=== PATIENT | male | born 2000 | race Caucasian/White ===

== ENCOUNTER 2023-06-20 07:16 | Observation (INO) | payer BC ==
--- NOTE | 2023-06-20 07:37 | ED ---
Back Pain HPI - General Chief Complaint: Back Pain/Injury Stated Complaint: back pain Time Seen by Provider: 06/20/23 07:23 Source: patient, RN notes reviewed Mode of arrival: ambulatory Limitations: no limitations - History of Present Illness Initial Comments: This is a 22-year-old male who presents to the emergency department for left flank pain. Patient states that it started 1 to 2 days ago. Pain is starting to wrap around to the abdomen to some extent. Reports a history of multiple kidney stones, most recently about a year ago. He has passed some on his own, and has also required surgery for some of them. He has noticed that his urine appears darker and he is having some burning with urination. MD Complaint: back pain - Related Data Home Medications Medication Instructions Recorded Confirmed No Known Home Medications 06/20/23 06/20/23 Allergies Allergy/AdvReac Type Severity Reaction Status Date / Time Penicillins Allergy Unknown Verified 06/20/23 13:32 Childhood, hives Review of Systems ROS Statement: Those systems with pertinent positive or pertinent negative responses have been documented in the HPI. ROS Other: All systems not noted in ROS Statement are negative. Past Medical History Additional Past Medical History / Comment(s): kidney stones Additional Past Surgical History / Comment(s): renal stents for kidney stones Past Psychological History: No Psychological Hx Reported Smoking Status: Vaper Past Alcohol Use History: Occasional General Exam Limitations: no limitations General appearance: alert, in no apparent distress Head exam: Present: atraumatic, normocephalic, normal inspection Respiratory exam: Present: normal lung sounds bilaterally. Absent: respiratory distress, wheezes, rales, rhonchi, stridor Cardiovascular Exam: Present: regular rate, normal rhythm, normal heart sounds. Absent: systolic murmur, diastolic murmur, rubs, gallop, clicks GI/Abdominal exam: Present: soft, tenderness (Left lower quadrant), normal bowel sounds. Absent: distended, guarding, rebound, rigid Back exam: Present: CVA tenderness (L). Absent: CVA tenderness (R) Neurological exam: Present: alert, oriented X3, CN II-XII intact Psychiatric exam: Present: normal affect, normal mood Skin exam: Present: warm, dry, intact, normal color. Absent: rash Course Vital Signs 06/20/23 06/20/23 06/20/23 07:16 07:48 13:10 Temperature 97.7 F Pulse Rate 72 68 64 Pulse Rate [ Pulse Oximetery ] Respiratory 18 16 18 Rate Blood Pressure 142/87 138/60 139/78 Blood Pressure [Right Arm] O2 Sat by Pulse 98 98 96 Oximetry 06/20/23 13:26 Temperature 98 F Pulse Rate Pulse Rate [ 65 Pulse Oximetery ] Respiratory 16 Rate Blood Pressure Blood Pressure 144/75 [Right Arm] O2 Sat by Pulse 99 Oximetry Medical Decision Making - Medical Decision Making This is a 22 year old male who presents to the emergency department for left flank pain. Was pt. sent in by a medical professional or institution? @ -No Did you speak to anyone other than the patient for history? @ -No Did you review nursing and triage notes? @ -Yes, and I agree, it is accurate with regards to the patient's symptoms. Were old charts reviewed? @ -No Differential Diagnosis? @ -Differential Flank Pain: UTI, pyelonephritis, kidney stone, musculoskeletal, pancreatitis, cholecystitis, this is not meant to be an all-inclusive list. EKG interpreted by me (3pts min.)? @ -Not obtained X-rays interpreted by me (1pt min.)? @ -Not obtained CT interpreted by me (1pt min.)? @ -CT scan of the abdomen and pelvis obtained. My interpretation identifies a left renal calculus. U/S interpreted by me (1pt. min.)? @ -Not obtained What testing was considered but not performed? (CT, X-rays, U/S, labs)? Why? @ -None What meds were considered but not given? Why? @ -None Did you discuss the management of the patient with other professionals? @ -Yes, Dr. Rowe, who accepts the patient for admission. Did you reconcile home meds? @ -Yes Was smoking cessation discussed for >3mins.? @ -No Was critical care preformed (if so, how long)? @ -No Were there social determinants of health that impacted care today? How? (Homelessness, low income, unemployed, alcoholism, drug addiction, transportation, low edu. Level, literacy, decrease access to med. care, fci, rehab)? @ -No Was there de-escalation of care discussed even if they declined? (Discuss DNR or withdrawal of care, Hospice)? @ -No What co-morbidities impacted this encounter? (DM, HTN, Smoking, COPD, CAD, Cancer, CVA, Hep., AIDS, mental health diagnosis, sleep apnea, morbid obesity)? @ -Kidney stones Was patient admitted / discharged? @ -Admitted. Lab work unremarkable. Urinalysis demonstrates blood without signs of infection. CT scan of the abdomen and pelvis obtained demonstrating a calculus at the left upper pole collecting system just proximal to the renal pelvis with upstream dilation. Patient initially treated with IV fluids, Toradol, and morphine. He had no improvement in symptoms and was then given Dilaudid. This offered only mild and temporary relief. Given the size and location of the stone, he will very likely need intervention to have it removed. Given that we are unable to control his pain in the emergency department, case was discussed with Dr. Rowe, urology. He accepted the patient for admission. Patient kept NPO in the event of any possible intervention. Undiagnosed new problem with uncertain prognosis? @ -None Drug Therapy requiring intensive monitoring for toxicity (Heparin, Nitro, Insulin, Cardizem)? @ -None Were any procedures done? @ -None Diagnosis/symptom? @ -Left renal pelvis stone, intractable pain Acute, or Chronic, or Acute on Chronic? @ -Acute Uncomplicated (without systemic symptoms) or Complicated (systemic symptoms)? @ -Complicated Side effects of treatment? @ -None Exacerbation, Progression, or Severe Exacerbation] @ -Not applicable Poses a threat to life or bodily function? @ -Yes This case was discussed in detail with the attending ED physician, Dr. Goins. Presentation, findings, and treatment plan discussed in detail as well. - Lab Data Result diagrams: 06/20/23 07:28 06/20/23 07:28 Lab Results 06/20/23 06/20/23 06/20/23 Range/Units 07:28 07:28 07:28 WBC 6.9 (3.8-10.6) k/uL RBC 5.47 (4.30-5.90) m/uL Hgb 17.2 (13.0-17.5) gm/dL Hct 50.2 (39.0-53.0) % MCV 91.9 (80.0-100.0) fL MCH 31.4 (25.0-35.0) pg MCHC 34.2 (31.0-37.0) g/dL RDW 12.3 (11.5-15.5) % Plt Count 187 (150-450) k/uL MPV 7.4 Neutrophils % 49 % Lymphocytes % 33 % Monocytes % 7 % Eosinophils % 8 % Basophils % 1 % Neutrophils # 3.4 (1.3-7.7) k/uL Lymphocytes # 2.2 (1.0-4.8) k/uL Monocytes # 0.5 (0-1.0) k/uL Eosinophils # 0.6 (0-0.7) k/uL Basophils # 0.1 (0-0.2) k/uL Sodium 140 (137-145) mmol/L Potassium 3.7 (3.5-5.1) mmol/L Chloride 109 H (98-107) mmol/L Carbon Dioxide 24 (22-30) mmol/L Anion Gap 7 mmol/L BUN 15 (9-20) mg/dL Creatinine 0.91 (0.66-1.25) mg/dL Est GFR (CKD-EPI)AfAm >90 (>60 ml/min/1.73 sqM) Est GFR (CKD-EPI)NonAf >90 (>60 ml/min/1.73 sqM) Glucose 93 (74-99) mg/dL Calcium 9.0 (8.4-10.2) mg/dL Total Bilirubin 2.7 H (0.2-1.3) mg/dL AST 26 (17-59) U/L ALT 24 (4-49) U/L Alkaline Phosphatase 77 (38-126) U/L Total Protein 6.6 (6.3-8.2) g/dL Albumin 3.7 (3.5-5.0) g/dL Urine Color Yellow Urine Appearance Clear (Clear) Urine pH 6.5 (5.0-8.0) Ur Specific [place] 1.019 (1.001-1.035) Urine Protein Trace H (Negative) Urine Glucose (UA) Negative (Negative) Urine Ketones Negative (Negative) Urine Blood Moderate H (Negative) Urine Nitrite Negative (Negative) Urine Bilirubin Negative (Negative) Urine Urobilinogen <2.0 (<2.0) mg/dL Ur Leukocyte Esterase Negative (Negative) Urine RBC 140 H (0-5) /hpf Urine WBC 2 (0-5) /hpf Urine Mucus Rare H (None) /hpf - Radiology Data Radiology results: report reviewed, image reviewed Disposition Clinical Impression: Renal colic, Intractable pain, Calculus of left kidney Disposition: ADMITTED IP TO THIS [facility] Time of Disposition: 10:00
[2023-06-20] MEDS: MORPHINE SULFATE 2 MG/ML SYRINGE IVP STA (07:39)
[2023-06-20] MEDS: KETOROLAC 15 MG/ML 1 ML VIAL IVP STA (07:39)
[2023-06-20] MEDS: SODIUM CHLORIDE 0.9% 1,000 ML IV STA (07:40)
[2023-06-20 08:02] LABS: Basophils # (A) 0.1 k/uL (0-0.2); Basophils % (A) 1 %; Eosinophils # (A) 0.6 k/uL (0-0.7); Eosinophils % (A) 8 %; HCT 50.2 % (39.0-53.0); HGB 17.2 gm/dL (13.0-17.5); Lymphocytes # (A) 2.2 k/uL (1.0-4.8); Lymphocytes % (A) 33 %; MCH 31.4 pg (25.0-35.0); MCHC 34.2 g/dL (31.0-37.0); MCV 91.9 fL (80.0-100.0); Mean Platelet Volume 7.4; Monocytes # (A) 0.5 k/uL (0-1.0); Monocytes % (A) 7 %; Neutrophils # (A) 3.4 k/uL (1.3-7.7); Neutrophils % (A) 49 %; Platelet Count 187 k/uL (150-450); RBC 5.47 m/uL (4.30-5.90); RDW 12.3 % (11.5-15.5); WBC 6.9 k/uL (3.8-10.6)
[2023-06-20 08:16] LABS: Appearance,Urine Clear (Clear); Bilirubin,Urine Negative (Negative); Blood,Urine Moderate (Negative); Color,Urine Yellow; Glucose,Urine (UA) Negative (Negative); Ketones,Urine Negative (Negative); Leukocyte Esterase,Urine Negative (Negative); Mucus,Urine Rare /hpf; Nitrite,Urine Negative (Negative); PH, Urine 6.5 (5.0-8.0); Protein,Urine Trace (Negative); RBC,Urine 140 /hpf (0-5); Specific Gravity,Urine 1.019 (1.001-1.035); Urobilinogen,Urine <2.0 mg/dL (<2.0); WBC,Urine 2 /hpf (0-5)
[2023-06-20 08:36] LABS: ALT 24 U/L (4-49); AST 26 U/L (17-59); African American GFR (CKD) >90 (>60 ml/min/1.73 sqM); Albumin 3.7 g/dL (3.5-5.0); Alkaline Phosphatase 77 U/L (38-126); Anion Gap 7 mmol/L; Blood Urea Nitrogen 15 mg/dL (9-20); Carbon Dioxide 24 mmol/L (22-30); Chloride 109 mmol/L (98-107); Glucose 93 mg/dL (74-99); Non-African American GFR(CKD) >90 (>60 ml/min/1.73 sqM); Potassium 3.7 mmol/L (3.5-5.1); Sodium 140 mmol/L (137-145); Total Bilirubin 2.7 mg/dL (0.2-1.3); Total Protein 6.6 g/dL (6.3-8.2)
[2023-06-20] MEDS: HYDROmorphone 1 MG/ML 1 ML SYRINGE IVP STA (09:04)
--- NOTE | 2023-06-20 09:05 | CT ---
EXAMINATION TYPE: CT abdomen pelvis wo con CT DLP: 580.8 mGycm, Automated exposure control for dose reduction was used. DATE OF EXAM: 06/20/2023 8:21 AM COMPARISON: None. CLINICAL INDICATION:Male, 22 years old with history of Left flank pain; Left flank pain TECHNIQUE: Axial CT of the abdomen and pelvis. Sagittal and coronal reformats were created on a [employer] workstation. Contrast used: mL of , (none if empty) Oral contrast used: without Oral Contrast (none if empty) FINDINGS: Exam is limited without contrast. LOWER CHEST: Unremarkable ABDOMEN LIVER: Unremarkable GALLBLADDER AND BILE DUCTS: Unremarkable gallbladder. No biliary ductal dilatation. PANCREAS: Unremarkable. SPLEEN: Unremarkable. ADRENAL GLANDS: Unremarkable. KIDNEYS AND URETERS: Left kidney is larger than the right, the right appears smaller and atrophic. Le ft kidney is 11.2 CM in length, right kidney 6.6 cm. No right renal calculi are seen. No hydronephros is. There is a punctate nonobstructing calculus within the mid left kidney. There is an 8.5 mm calcul us within the left upper pole collecting system just proximal to the renal pelvis, with mild upstream dilatation. Continuing distally, the ureter shows no additional calculi or distention. PELVIS BLADDER: Incompletely distended and not well assessed. REPRODUCTIVE: Unremarkable prostate ABDOMEN & PELVIS STOMACH AND BOWEL: Stomach and small bowel are nondistended, there is no evidence of obstruction. Sli ghtly swirled appearance of the mesentery in the upper abdomen, may suggest a developmental bowel mal rotation. Normal appendix is seen. Moderate stool throughout the colon. No focal acute abnormality. PERITONEUM/RETROPERITONEUM: No evidence of pneumoperitoneum or free fluid. VASCULATURE: Aorta and major branches are grossly unremarkable. No AAA. IVC is normal caliber. LYMPH NODES: No enlarged nodes. SOFT TISSUE/ABDOMINAL WALL: Unremarkable MUSCULOSKELETAL: No acute osseous abnormalities. IMPRESSION: 1. An 8.5 mm calculus within the left upper pole collecting system just proximal to the renal pelvis , with mild upstream dilatation. 2. Atrophic right kidney.
[2023-06-20] MEDS ORDERED: ACETAMINOPHEN TAB 325 MG TAB PO PRN (10:10)
[2023-06-20] MEDS ORDERED: NALOXONE 0.4 MG/ML 1 ML VIAL IV PRN (10:10)
[2023-06-20] MEDS ORDERED: IBUPROFEN 400 MG TAB PO PRN (10:10)
[2023-06-20] MEDS: SODIUM CHLORIDE 0.9% 1,000 ML IV SCH (10:30)
--- NOTE | 2023-06-20 11:21 | XR ---
EXAMINATION TYPE: XR KUB DATE OF EXAM: 06/20/2023 COMPARISON: None INDICATION: Left renal calculus TECHNIQUE: Single view abdomen upright view FINDINGS: There is a normal bowel gas pattern. Mild fecal debris is within the transverse and descending colon. Psoas margins are normal. No organomegaly is present. There is a 0.9 cm calcification mid left renal pelvis region. Osseous structures are unremarkable. IMPRESSION: 1. 0.9 cm left renal pelvic region calcification
[2023-06-20] MEDS: MORPHINE SULFATE 2 MG/ML SYRINGE IVP PRN (11:26)
[2023-06-20] MEDS: MORPHINE SULFATE 4 MG/ML SYRINGE IV PRN (13:08)
[2023-06-20] MEDS: ONDANSETRON 4 MG/2 ML VIAL IVP PRN (13:36)
[2023-06-20] MEDS: LACTATED RINGERS 1,000 ML IV ONE (13:44)
--- NOTE | 2023-06-20 14:14 | P.GSHP ---
History of Present Illness H&P Date: 06/20/23 Chief Complaint: Left flank pain The patient is a 22-year-old white male who presented to the ER with a 1 to 2- day history of left flank pain radiating to the left testicle. CT scan shows a left renal pelvic calculus with evidence of obstruction, and the patient was admitted due to intractable pain. The patient has a history of recurrent urolithiasis. He has previously u ndergone bilateral ureteroscopic removal of calculi in [facility]. - Constitutional Constitutional: Denies chills, Denies fever - Genitourinary (Male) Genitourinary: Reports dysuria, Reports flank pain, Reports kidney stones, Denies hematuria Past Medical History Additional Past Medical History / Comment(s): kidney stones Additional Past Surgical History / Comment(s): renal stents for kidney stones Past Psychological History: No Psychological Hx Reported Smoking Status: Vaper Past Alcohol Use History: Occasional Medications and Allergies Home Medications Medication Instructions Recorded Confirmed Type No Known Home Medications 06/20/23 06/20/23 History Allergies Allergy/AdvReac Type Severity Reaction Status Date / Time Penicillins Allergy Unknown Verified 06/20/23 13:32 Childhood, hives Surgical - Exam Vital Signs Temp Pulse Resp BP Pulse Ox 97.7 F 72 18 142/87 98 06/20/23 07:16 06/20/23 07:16 06/20/23 07:16 06/20/23 07:16 06/20/23 07:16 - General well developed, well nourished, moderate distress - Respiratory normal respiratory effort - Abdomen Abdomen: soft, non tender, no guarding, no rigid, no rebound - Genitourinary normal penis with no external lesions, testicles non-tender - Psychiatric oriented to time, oriented to person, oriented to place, speech is normal, memory intact Results - Labs 06/20/23 07:28 06/20/23 07:28 Abnormal Lab Results - Last 24 Hours (Table) 06/20/23 06/20/23 Range/Units 07:28 07:28 Chloride 109 H (98-107) mmol/L Total Bilirubin 2.7 H (0.2-1.3) mg/dL Urine Protein Trace H (Negative) Urine Blood Moderate H (Negative) Urine RBC 140 H (0-5) /hpf Urine Mucus Rare H (None) /hpf Diabetes panel 06/20/23 Range/Units 07:28 Sodium 140 (137-145) mmol/L Potassium 3.7 (3.5-5.1) mmol/L Chloride 109 H (98-107) mmol/L Carbon Dioxide 24 (22-30) mmol/L BUN 15 (9-20) mg/dL Creatinine 0.91 (0.66-1.25) mg/dL Glucose 93 (74-99) mg/dL Calcium 9.0 (8.4-10.2) mg/dL AST 26 (17-59) U/L ALT 24 (4-49) U/L Alkaline Phosphatase 77 (38-126) U/L Total Protein 6.6 (6.3-8.2) g/dL Albumin 3.7 (3.5-5.0) g/dL Calcium panel 06/20/23 Range/Units 07:28 Calcium 9.0 (8.4-10.2) mg/dL Albumin 3.7 (3.5-5.0) g/dL Pituitary panel 06/20/23 Range/Units 07:28 Sodium 140 (137-145) mmol/L Potassium 3.7 (3.5-5.1) mmol/L Chloride 109 H (98-107) mmol/L Carbon Dioxide 24 (22-30) mmol/L BUN 15 (9-20) mg/dL Creatinine 0.91 (0.66-1.25) mg/dL Glucose 93 (74-99) mg/dL Calcium 9.0 (8.4-10.2) mg/dL Adrenal panel 06/20/23 Range/Units 07:28 Sodium 140 (137-145) mmol/L Potassium 3.7 (3.5-5.1) mmol/L Chloride 109 H (98-107) mmol/L Carbon Dioxide 24 (22-30) mmol/L BUN 15 (9-20) mg/dL Creatinine 0.91 (0.66-1.25) mg/dL Glucose 93 (74-99) mg/dL Calcium 9.0 (8.4-10.2) mg/dL Total Bilirubin 2.7 H (0.2-1.3) mg/dL AST 26 (17-59) U/L ALT 24 (4-49) U/L Alkaline Phosphatase 77 (38-126) U/L Total Protein 6.6 (6.3-8.2) g/dL Albumin 3.7 (3.5-5.0) g/dL - Imaging Abdominal x-ray: report reviewed, image reviewed CT scan - abdomen: report reviewed, image reviewed Assessment and Plan (1) Calculus of left kidney Current Visit: Yes Status: Acute Code(s): N20.0 - CALCULUS OF KIDNEY SNOMED Code(s): 23975412 Plan: I had a lengthy discussion with the patient regarding his 8.5 mm left renal pelvic calculus. We discussed alternative treatment options, namely ureteroscopy with laser lithotripsy versus extracorporal shockwave lithotripsy (ESWL). The first available date to perform ESWL is June 26, 2023. Patient was advised that the success rate of ESWL in this setting is approximately 75%. He is scheduled to go to [place] on June 28, 2023. He has elected to undergo uret eroscopic removal of the calculus later today. He is aware of the need for a ureteral stent, and I am hopeful that the stent can be removed on June 25 prior to his departure to [place]. He is aware of potential risks, which include anesthesia, bleeding, infection, inability to successfully remove the calculus, and ureteral injury.
[2023-06-20] MEDS ORDERED: LIDOCAINE 1% INJ 10MG/ML (20 ML MDV) ONE (14:22)
[2023-06-20] MEDS ORDERED: PROPOFOL 10 MG/ML 20 ML VIAL IV ONE (14:22)
[2023-06-20] MEDS ORDERED: fentaNYL (PF) 50 MCG/ML 2 ML AMP ONE (14:22)
[2023-06-20] MEDS ORDERED: MIDAZOLAM 2 MG/2 ML VIAL ONE (14:22)
[2023-06-20] MEDS: LEVOFLOXACIN 500MG-D5W PMX 500 MG in DEXTROSE/WATER 1 100ML.BAG IVPB ONE (14:42)
[2023-06-20] MEDS: IOPAMIDOL-370 100ML BTL MISCELLANE ONE ×2 (14:50)
--- NOTE | 2023-06-20 15:54 | P.OP ---
Date of Procedure: 06/20/23 Preoperative Diagnosis: Left renal calculus Postoperative Diagnosis: Same Procedure(s) Performed: Cystoscopy, left ureteral balloon dilation, left ureteroscopy with Holmium laser lithotripsy, left ureteral stent insertion Anesthesia: GHAZALA Surgeon: Ky Rowe Estimated Blood Loss (ml): 20 IV fluids (ml): 700 Pathology: none sent Condition: stable Disposition: PACU Indications for Procedure: The patient is a 22-year-old white male who presented to the ER with a 1 to 2- day history of left flank pain radiating to the left testicle. CT scan shows an 8.5 mm left renal pelvic calculus with evidence of obstruction, and the patient was admitted due to intractable pain. He desires surgical removal of the calculus and comes for this reason. Operative Findings: 8 mm left upper pole renal calculus, fragmented completely. Description of Procedure: The patient was taken to the operating room and placed in the dorsolithotomy position, with legs supported in Samir stirrups. The external genitalia was prepped and draped sterilely. The 30 lens was used to introduce the 21-Dominican Rao cystoscopic sheath through the urethra and into the bladder under direct vision. The bulbous urethra showed evidence of a wide caliber stricture, through which the cystoscope passed without difficulty. The prostatic urethra showed evidence of minimal lateral lobe enlargement. The bladder was examined in its entirety. Both ureteral orifices were normal anatomic location and configuration, and clear urine effluxed from both. No tumors or foreign bodies were seen. A 0.038 inch Glidewire was passed through the cystoscope. The left ureteral orifice was cannulated, and the Glidewire was advanced up to the renal pelvis. The cystoscope was removed, and an 11/13-Dominican ureteral access catheter was passed over the wire. Resistance was met just distal to the level of the iliac vessels, and the ureteral access catheter could not be passed beyond this point. It was therefore removed, and a 15 Dominican, 4 cm balloon dilating catheter was passed over the wire and used to dilate this portion of the ureter. The balloon dilating catheter was then removed, and the ureteral access catheter was passed over the wire. Once again, it could not be passed beyond this point. Therefore, the obturator was removed, and with the access catheter sheath within the distal ureter, the ContactPoint flexible ureteroscope was passed through the ureteral access catheter sheath. It was possible to advance the ureteroscope under direct vision up to the left renal pelvis, where the calculus was seen. The 272 micron Holmium laser probe was passed through the ureteroscope, and lithotripsy was performed utilizing a dusting mode. The calculus refluxed into an upper pole calyx. After dusting the majority of the calculus, pieces of the calculus broke away and were treated within the calyx via a popcorning mode. The result was no residual calculus fragments exceeding the size of the laser fiber tip. Pullout ureteroscopy showed no evidence of ureteral trauma. The cystoscope was removed, and the cystoscope was replaced into the bladder under direct vision. The Glidewire was passed up to the left renal pelvis, and a 28 cm, 4.8 Dominican double-J ureteral stent was placed over the wire. Proper stent positioning was verified fluoroscopically and endoscopically. The bladder was emptied and the cystoscope removed. The patient tolerated the procedure well and was taken to the recovery room in stable condition. BRISEIDA ROCKS Report: Procedure Acuity: Urgent Stone Size and Location: 8 mm, left renal pelvis Ureteral Dilation: Balloon Dilation Ureteral Access Sheath Used: Yes Stone Sent for Analysis: No All Stones/Fragments Were Removed with a Basket: No Complications: No Preoperative Antibiotics Given: Yes Stent Placed: Yes If Stent Placed, Was String Left Attached: No If Stent Placed, When is it to be Removed: 1 week Discharge Medications: Toradol, tamsulosin
--- NOTE | 2023-06-20 16:08 | FL ---
EXAMINATION TYPE: FL guidance operating room Intraoperative/procedural fluoroscopic services were pro vided. Total fluoroscopy time is 80.9 seconds with a total of 3 submitted images to PACS. Please see the operative/procedural note for further details. DAP: [id number] mGym2
[2023-06-20] MEDS: fentaNYL (PF) 50 MCG/1 ML VIAL IVP ONE (16:09)
[2023-06-20] MEDS: KETOROLAC 15 MG/ML 1 ML VIAL IVP ONE (16:35)
[2023-06-20] MEDS: TAMSULOSIN 0.4 MG CAP.ER.24H PO SCH (16:45)
[2023-06-20] MEDS: KETOROLAC 15 MG/ML 1 ML VIAL IVP PRN (19:41)
[2023-06-21 08:25] VITALS: BP 137/81; PULSE 64; RESP 16; TEMP 98.1
--- NOTE | 2023-06-21 08:49 | P.DS ---
Providers Date of admission: 06/20/23 10:35 Expected date of discharge: 06/21/23 Attending physician: Ky Rowe Primary care physician: Megan Newman - Discharge Diagnosis(es) (1) Calculus of left kidney Current Visit: Yes Status: Acute Hospital Course: The patient was admitted with intractable left flank pain due to an 8.5 mm left renal pelvic calculus. He underwent ureteroscopic removal of the calculus. At that time, narrowing of the left distal ureter was noted. Balloon dilation was performed, but it was still not possible to advance a ureteral access catheter through this area. However, it was possible to advance the ureteroscope up to the renal pelvis and fragment the calculus via dusting. The perioperative course was unremarkable. The patient remained afebrile with stable vital signs. He did report left flank pain on the first postoperative day but was otherwise doing well. Procedures: Cystoscopy, left ureteroscopy with holmium laser lithotripsy, left ureteral stent insertion on June 20, 2023. Patient Condition at Discharge: Good Plan - Discharge Summary Discharge Rx Participant: Yes New Discharge Prescriptions: New Ketorolac [Toradol] 10 mg PO Q6HR PRN #10 tab PRN Reason: Pain Tamsulosin [Flomax] 0.4 mg PO DAILY #30 cap HYDROcodone/APAP 5-325MG [[place] 5-325] 1 - 2 tab PO Q4HR PRN #6 tab PRN Reason: Severe Pain (Scale 7 To 10) Discharge Medication List HYDROcodone/APAP 5-325MG [[place] 5-325] 1 - 2 tab PO Q4HR PRN #6 tab 06/21/23 [Rx] Ketorolac [Toradol] 10 mg PO Q6HR PRN #10 tab 06/21/23 [Rx] Tamsulosin [Flomax] 0.4 mg PO DAILY #30 cap 06/21/23 [Rx] Follow up Appointment(s)/Referral(s): Megan Newman DO [Primary Care Provider] - 1-2 days Ky Rowe MD [STAFF PHYSICIAN] - 06/26/23 Activity/Diet/Wound Care/Special Instructions: Diet as tolerated. Activity as tolerated. Drink plenty of fluids. Follow-up June 25 or June 26 for office cystoscopy with stent removal. Discharge Disposition: HOME SELF-CARE
== END 2023-06-21 11:20 | disposition home or self-care (01) ==
LOC: EC 07:16 → 4SSUR 10:35
PROVIDERS: ADMIT Urology; ATTEND Urology
DX: N20.0 Calculus of kidney (principal); I10 Essential (primary) hypertension; F17.290 Nicotine dependence, other tobacco product, uncomplicated; Z88.0 Allergy status to penicillin; Z87.442 Personal history of urinary calculi
CPT/HCPCS: 96376; 96361; 96374; 96375; 99285; 36415; 80053; 85025; 81001; 74018; 74176; 52356; G0378 ×2; C2625; C1769; J2270 ×4; J2405; J1956; J1170; J1885 ×2; Q9967; J3010

== ENCOUNTER 2023-06-25 18:13 | Emergency (ER) | payer BC ==
[2023-06-25 18:53] VITALS: RESP 18; TEMP 100.4
--- NOTE | 2023-06-25 19:05 | ED ---
General Adult HPI - General Chief complaint: Urogenital Stated complaint: pain in urinating, side/stomach pain Time Seen by Provider: 06/25/23 18:30 Source: patient Mode of arrival: ambulatory Limitations: no limitations - History of Present Illness Initial comments: 22-year-old male presenting to the ED with a chief complaint of left flank pain. Patient recently admitted to this facility secondary to intractable left flank pain due to a 8.5 mm left renal pelvic calculus. He underwent left ureteroscopy with laser lithotripsy and left ureteral stent insertion on 06/20/2023. Patient admits that he was told some flank pain and hematuria will be a possible complication and reports that he was doing well initially over the past few days however states over the last 1 to 2 days has had worsening left flank pain and worsening hematuria which is worse compared to the first few days perioperatively. Also does note some fever and chills as well. No nausea or vomiting. No change in bowel habits. No chest pain or shortness of breath. No other complaints at this time. - Related Data Previous Rx's Medication Instructions Recorded HYDROcodone/APAP 5-325MG [[place] 1 - 2 tab PO Q4HR PRN #6 tab 06/21/23 5-325] Ketorolac [Toradol] 10 mg PO Q6HR PRN #10 tab 06/21/23 Tamsulosin [Flomax] 0.4 mg PO DAILY #30 cap 06/21/23 Ciprofloxacin HCl 500 mg PO BID 7 Days #14 tablet 06/25/23 Allergies Allergy/AdvReac Type Severity Reaction Status Date / Time Penicillins Allergy Unknown Verified 06/25/23 18:23 Childhood, hives Review of Systems ROS Statement: Those systems with pertinent positive or pertinent negative responses have been documented in the HPI. ROS Other: All systems not noted in ROS Statement are negative. Past Medical History Additional Past Medical History / Comment(s): kidney stones History of Any Multi-Drug Resistant Organisms: None Reported Additional Past Surgical History / Comment(s): renal stents for kidney stones Past Psychological History: No Psychological Hx Reported Smoking Status: Vaper Past Alcohol Use History: Occasional Past Drug Use History: None Reported - Past Family History Father Family Medical History: Hypertension General Exam Limitations: no limitations General appearance: alert, in no apparent distress Eye exam: Present: normal appearance Neck exam: Present: normal inspection Respiratory exam: Present: normal lung sounds bilaterally Cardiovascular Exam: Present: regular rate, normal rhythm GI/Abdominal exam: Present: soft (No significant abdominal tenderness to palpation. Left CVA tenderness to percussion.) Neurological exam: Present: alert, oriented X3 Skin exam: Present: warm, dry Course Vital Signs 06/25/23 06/25/23 18:21 20:07 Temperature 100.4 F H Pulse Rate 63 52 L Respiratory 18 18 Rate Blood Pressure 159/78 143/96 O2 Sat by Pulse 99 98 Oximetry Medical Decision Making - Medical Decision Making Was pt. sent in by a medical professional or institution (, PA, DEVELOPMENT LEAD, urgent care, hospital, or [facility]...) When possible be specific @ -No Did you speak to anyone other than the patient for history (EMS, parent, family, police, friend...)? What history was obtained from this source @ -No Did you review nursing and triage notes (agree or disagree)? Why? @ -I reviewed and agree with nursing and triage notes Were old charts reviewed (outside hosp., previous admission, EMS record, old EKG, old radiological studies, urgent care reports/EKG's, [facility] records)? Report findings @ -Reviewed prior admission and surgery note. For further details please see HPI. Differential Diagnosis (chest pain, altered mental status, abdominal pain women, abdominal pain men, vaginal bleeding, weakness, fever, dyspnea, syncope, headache, dizziness, GI bleed, back pain, seizure, CVA, palpatations, mental health, musculoskeletal)? @ -Differential Abdominal Pain Men: Appendicitis, cholecystitis, diverticulosis, ischemic bowel, pancreatitis, hepatitis, UTI, gastroenteritis, AAA, incarcerated hernia, bowel obstruction, constipation, inflammatory bowel, hepatitis, peptic ulcer disease, splenic infarction, perforated viscus, testicular torsion, this is not meant to be an all-inclusive list EKG interpreted by me (3pts min.). @ -None X-rays interpreted by me (1pt min.). @ -KUB interpreted me which shows ureteral stent in place. CT interpreted by me (1pt min.). @ -None done U/S interpreted by me (1pt. min.). @ -None done What testing was considered but not performed or refused? (CT, X-rays, U/S, labs)? Why? @ -None What meds were considered but not given or refused? Why? @ -None Did you discuss the management of the patient with other professionals (professionals i.e. , PA, DEVELOPMENT LEAD, lab, RT, psych nurse, social service liaison, family lawyer, teacher, telecommunications officer, ed case manager)? Give summary @ -Patient discussed with Dr. Rowe. Advises if pain well-controlled may go home. Advised urine culture and starting the patient on quinolone antibiotic. Advised patient follow-up as scheduled for stent removal tomorrow. Was smoking cessation discussed for >3mins.? @ -No Was critical care preformed (if so, how long)? @ -No Were there social determinants of health that impacted care today? How? ( Homelessness, low income, unemployed, alcoholism, drug addiction, transportation, low edu. Level, literacy, decrease access to med. care, alf, rehab)? @ -No Was there de-escalation of care discussed even if they declined (Discuss DNR or withdrawal of care, Hospice)? DNR status @ -No What co-morbidities impacted this encounter? (DM, HTN, Smoking, COPD, CAD, Cancer, CVA, ARF, Chemo, Hep., AIDS, mental health diagnosis, sleep apnea, morbid obesity)? @ -Recent lithotripsy s/p stent Was patient admitted / discharged? Hospital course, mention meds given and route, prescriptions, significant lab abnormalities, going to OR and other pertinent info. @ -Discharge 22-year-old male presenting to the ED with complaints of worsening flank pain and hematuria status post recent lithotripsy and left ureteral stent placement. Laboratory studies reviewed. CBC CMP largely unremarkable. UA does show possible evidence of infection with positive leukocyte Estrace, 13 RBCs, however negative nitrites, no bacteria. Urine culture obtained. Patient febrile here 100.4 F however does appear hemodynamically stable. No evidence of sepsis at this time. Provided dose of ciprofloxacin here in the ED and discharged home with prescription for ciprofloxacin. Advise close follow-up with urology tomorrow. Discussed return precautions with patient who verbalized agreement. Undiagnosed new problem with uncertain prognosis? @ -No Drug Therapy requiring intensive monitoring for toxicity (Heparin, Nitro, Insulin, Cardizem)? @ -No Were any procedures done? @ -No Diagnosis/symptom? @ -Status post lithotripsy and left ureteral stent, possible urinary tract infection Acute, or Chronic, or Acute on Chronic? @ -Acute Uncomplicated (without systemic symptoms) or Complicated (systemic symptoms)? @ -Complicated Side effects of treatment? @ -No Exacerbation, Progression, or Severe Exacerbation? @ -No Poses a threat to life or bodily function? How? (Chest pain, [place], [place], pneumonia, PE, COPD, DKA, ARF, appy, cholecystitis, CVA, Diverticulitis, Homicidal, Suicidal, threat to staff... and all critical care pts) @ -No - Lab Data Result diagrams: 06/25/23 18:55 06/25/23 18:55 Lab Results 06/25/23 06/25/23 06/25/23 Range/Units 18:55 18:55 18:55 WBC 7.3 (3.8-10.6) k/uL RBC 5.00 (4.30-5.90) m/uL Hgb 15.7 (13.0-17.5) gm/dL Hct 45.3 (39.0-53.0) % MCV 90.5 (80.0-100.0) fL MCH 31.4 (25.0-35.0) pg MCHC 34.7 (31.0-37.0) g/dL RDW 12.2 (11.5-15.5) % Plt Count 175 (150-450) k/uL MPV 7.5 Neutrophils % 49 % Lymphocytes % 29 % Monocytes % 8 % Eosinophils % 11 % Basophils % 1 % Neutrophils # 3.6 (1.3-7.7) k/uL Lymphocytes # 2.1 (1.0-4.8) k/uL Monocytes # 0.6 (0-1.0) k/uL Eosinophils # 0.8 H (0-0.7) k/uL Basophils # 0.1 (0-0.2) k/uL Sodium 138 (137-145) mmol/L Potassium 3.7 (3.5-5.1) mmol/L Chloride 108 H (98-107) mmol/L Carbon Dioxide 24 (22-30) mmol/L Anion Gap 6 mmol/L BUN 18 (9-20) mg/dL Creatinine 0.87 (0.66-1.25) mg/dL Est GFR (CKD-EPI)AfAm >90 (>60 ml/min/1.73 sqM) Est GFR (CKD-EPI)NonAf >90 (>60 ml/min/1.73 sqM) Glucose 96 (74-99) mg/dL Calcium 8.7 (8.4-10.2) mg/dL Total Bilirubin 1.3 (0.2-1.3) mg/dL AST 28 (17-59) U/L ALT 21 (4-49) U/L Alkaline Phosphatase 75 (38-126) U/L Total Protein 6.3 (6.3-8.2) g/dL Albumin 3.6 (3.5-5.0) g/dL Urine Color Light Brown Urine Appearance Cloudy (Clear) Urine pH 7.0 (5.0-8.0) Ur Specific [place] 1.015 (1.001-1.035) Urine Protein 1+ H (Negative) Urine Glucose (UA) Negative (Negative) Urine Ketones Negative (Negative) Urine Blood Large H (Negative) Urine Nitrite Negative (Negative) Urine Bilirubin Negative (Negative) Urine Urobilinogen <2.0 (<2.0) mg/dL Ur Leukocyte Esterase Moderate H (Negative) Urine RBC >182 H (0-5) /hpf Urine WBC 13 H (0-5) /hpf Disposition Clinical Impression: History of lithotripsy, UTI (urinary tract infection) Disposition: HOME SELF-CARE Condition: Good Additional Instructions: Please return to the Emergency Department if symptoms worsen or any other concerns. Please follow-up with urology tomorrow as scheduled for stent rem oval. Prescriptions: Ciprofloxacin HCl 500 mg PO BID 7 Days #14 tablet Is patient prescribed a controlled substance at d/c from ED?: No Referrals: Megan Newman DO [Primary Care Provider] - 1-2 days Time of Disposition: 20:43
[2023-06-25 19:08] LABS: Basophils # (A) 0.1 k/uL (0-0.2); Basophils % (A) 1 %; Eosinophils # (A) 0.8 k/uL (0-0.7); Eosinophils % (A) 11 %; HCT 45.3 % (39.0-53.0); HGB 15.7 gm/dL (13.0-17.5); Lymphocytes # (A) 2.1 k/uL (1.0-4.8); Lymphocytes % (A) 29 %; MCH 31.4 pg (25.0-35.0); MCHC 34.7 g/dL (31.0-37.0); MCV 90.5 fL (80.0-100.0); Mean Platelet Volume 7.5; Monocytes # (A) 0.6 k/uL (0-1.0); Monocytes % (A) 8 %; Neutrophils # (A) 3.6 k/uL (1.3-7.7); Neutrophils % (A) 49 %; Platelet Count 175 k/uL (150-450); RDW 12.2 % (11.5-15.5); WBC 7.3 k/uL (3.8-10.6)
--- NOTE | 2023-06-25 19:16 | XR ---
EXAMINATION TYPE: XR KUB DATE OF EXAM: 06/25/2023 COMPARISON: 06/20/2023 INDICATION: Renal stone stent placed TECHNIQUE: Single view abdomen upright view FINDINGS: There is a normal bowel gas pattern. Psoas margins are normal. No organomegaly is present. Ureteral stent is present. No suspicious calcification is identified. IMPRESSION: 1. Unremarkable Abdomen were 2 residual calcifications are not identified
[2023-06-25 19:23] LABS: ALT 21 U/L (4-49); AST 28 U/L (17-59); African American GFR (CKD) >90 (>60 ml/min/1.73 sqM); Albumin 3.6 g/dL (3.5-5.0); Alkaline Phosphatase 75 U/L (38-126); Anion Gap 6 mmol/L; Appearance,Urine Cloudy (Clear); Bilirubin,Urine Negative (Negative); Blood Urea Nitrogen 18 mg/dL (9-20); Blood,Urine Large (Negative); Calcium 8.7 mg/dL (8.4-10.2); Carbon Dioxide 24 mmol/L (22-30); Chloride 108 mmol/L (98-107); Color,Urine Light Brown; Glucose 96 mg/dL (74-99); Glucose,Urine (UA) Negative (Negative); Ketones,Urine Negative (Negative); Leukocyte Esterase,Urine Moderate (Negative); Nitrite,Urine Negative (Negative); Non-African American GFR(CKD) >90 (>60 ml/min/1.73 sqM); Potassium 3.7 mmol/L (3.5-5.1); Protein,Urine 1+ (Negative); RBC,Urine >182 /hpf (0-5); Sodium 138 mmol/L (137-145); Specific Gravity,Urine 1.015 (1.001-1.035); Total Bilirubin 1.3 mg/dL (0.2-1.3); Total Protein 6.3 g/dL (6.3-8.2); Urobilinogen,Urine <2.0 mg/dL (<2.0); WBC,Urine 13 /hpf (0-5)
[2023-06-25] MEDS: SODIUM CHLORIDE 0.9% 1,000 ML IV STA (20:01)
[2023-06-25] MEDS: KETOROLAC 15 MG/ML 1 ML VIAL IVP STA (20:02)
[2023-06-25] MEDS: ACETAMINOPHEN TAB 500 MG TAB PO STA (20:04)
[2023-06-25 20:33] VITALS: PULSE 52
[2023-06-25] MEDS: LEVOFLOXACIN 500MG-D5W PMX 500 MG in DEXTROSE/WATER 1 100ML.BAG IVPB STA (21:05)
[2023-06-25] MEDS: MORPHINE SULFATE 4 MG/ML SYRINGE IVP STA (21:08)
[2023-06-25] MEDS: methylPREDNISolone SOD SUCCI 125 MG/2 ML VIAL IV STA (22:14)
[2023-06-25] MEDS: diphenhydrAMINE 50 MG/ML 1 ML VIAL IVP STA (22:16)
[2023-06-25] MEDS: FAMOTIDINE 20 MG/2 ML VIAL IV STA (22:17)
[2023-06-25 23:09] VITALS: BP 143/99
== END 2023-06-25 22:59 | disposition home or self-care (01) ==
LOC: EC 18:13
DX: N39.0 Urinary tract infection, site not specified (principal); Z88.0 Allergy status to penicillin; Z87.442 Personal history of urinary calculi; Z96.0 Presence of urogenital implants
CPT/HCPCS: 36415; 80053; 85025; 81001; 87040; 87086; 74018; 99284; 96365; 96375 ×5; 96361; J2270; J1200; J2930; J1956; J3490; J1885

== ENCOUNTER 2023-11-08 20:27 | Emergency (ER) | payer BC ==
[~2023-11-08 20:27] MED LIST: SODIUM CHLORIDE 0.9% 1,000 ML BAG ONE
[2023-11-09] MEDS ORDERED: KETOROLAC 15 MG/ML 1 ML VIAL ONE (00:12)
[2023-11-09] MEDS ORDERED: ONDANSETRON 4 MG/2 ML VIAL ONE (00:12)
[2023-11-09] MEDS ORDERED: MORPHINE SULFATE 4 MG/ML SYRINGE ONE (01:07)
== END 2023-11-09 03:35 | disposition home or self-care (01) ==
LOC: EC 20:27
DX: R10.9 Unspecified abdominal pain (principal)
CPT/HCPCS: 96361; 96374; 96375; 99283

== ENCOUNTER 2024-01-07 00:45 | Emergency (ER) | payer BC ==
[2024-01-07 00:50] VITALS: RESP 18; TEMP 98.7
--- NOTE | 2024-01-07 01:02 | ED ---
Upper Extremity HPI - General Chief Complaint: Extremity Injury, Upper Stated Complaint: Lft Shoulder Pain/Neck Pain Time Seen by Provider: 01/07/24 01:00 Source: patient, RN notes reviewed Mode of arrival: ambulatory Limitations: no limitations - History of Present Illness Initial Comments: 23-year-old male presented to ER with a chief complaint of left shoulder pain. 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 He states he gets flareups of these pain especially when consuming large amounts of alcohol. He states that he was drinking and started to experience pain pain in his left shoulder. Reports most of his pain over left trapezius muscle with mild radiation into his neck. Denies any new injuries or traumas. Denies any paresthesias. Denies any weakness. No other complaints. No chest pain or shortness of breath. - Related Data Previous Rx's Medication Instructions Recorded HYDROcodone/APAP 5-325MG [[place] 1 - 2 tab PO Q4HR PRN #6 tab 06/21/23 5-325] Ketorolac [Toradol] 10 mg PO Q6HR PRN #10 tab 06/21/23 Tamsulosin [Flomax] 0.4 mg PO DAILY #30 cap 06/21/23 Sulfamethox-Tmp 800-160Mg [[place] 1 each PO Q12HR 7 Days #14 tab 06/25/23 Ds] Allergies Allergy/AdvReac Type Severity Reaction Status Date / Time Penicillins Allergy Unknown Verified 01/07/24 00:50 Childhood, hives Review of Systems ROS Statement: Those systems with pertinent positive or pertinent negative responses have been documented in the HPI. ROS Other: All systems not noted in ROS Statement are negative. Past Medical History Additional Past Medical History / Comment(s): kidney stones , broken right hand History of Any Multi-Drug Resistant Organisms: None Reported Additional Past Surgical History / Comment(s): renal stents for kidney stones Past Psychological History: No Psychological Hx Reported Smoking Status: Vaper Past Alcohol Use History: Occasional Past Drug Use History: None Reported - Past Family History Father Family Medical History: Hypertension General Exam General appearance: alert, in no apparent distress Neck exam: Present: tenderness (Left trapezius), full ROM Respiratory exam: Present: normal lung sounds bilaterally. Absent: respiratory distress, wheezes, rales, rhonchi, stridor Cardiovascular Exam: Present: regular rate, normal rhythm, normal heart sounds. Absent: systolic murmur, diastolic murmur, rubs, gallop, clicks Extremities exam: Present: normal inspection, full ROM, tenderness (Left trapezius no focal bony tenderness. 2+ left radial pulse.) Neurological exam: Present: alert, oriented X3, CN II-XII intact Skin exam: Present: warm, dry, intact, normal color. Absent: rash Course Vital Signs 01/07/24 01/07/24 00:47 02:20 Temperature 98.7 F Pulse Rate 74 57 L Respiratory 18 18 Rate Blood Pressure 147/92 149/98 O2 Sat by Pulse 98 99 Oximetry Medical Decision Making - Medical Decision Making Was pt. sent in by a medical professional or institution ([facility] [place], CO TEACHER, urgent care, hospital, or shelter...) When possible be specific @ -No Did you speak to anyone other than the patient for history (EMS, parent, family, police, friend...)? What history was obtained from this source @ -No Did you review nursing and triage notes (agree or disagree)? Why? @ -I reviewed and agree with nursing and triage notes Were old charts reviewed (outside hosp., previous admission, EMS record, old EKG, old radiological studies, urgent care reports/EKG's, shelter records)? Report findings @ -No old charts were reviewed Differential Diagnosis (chest pain, altered mental status, abdominal pain women, abdominal pain men, vaginal bleeding, weakness, fever, dyspnea, syncope, headache, dizziness, GI bleed, back pain, seizure, CVA, palpatations, mental health, musculoskeletal)? @ -Differential Musculoskeletal: Muscular strain, contusion, ligament sprain, fracture, arthritis, septic arthritis, bursitis, cellulitis, muscle spasm, nerve compression, DVT, arterial occlusion, herpes zoster, electrolyte abnormality, tumor.... This is not meant to be in all inclusive list EKG interpreted by me (3pts min.). @ -None done X-rays interpreted by me (1pt min.). @ -Left shoulder x-ray negative for acute process. Cervical spine x-ray negative for acute process. CT interpreted by me (1pt min.). @ -None done U/S interpreted by me (1pt. min.). @ -None done What testing was considered but not performed or refused? (CT, X-rays, U/S, labs)? Why? @ -None What meds were considered but not given or refused? Why? @ -None Did you discuss the management of the patient with other professionals (professionals i.e. , ATSER, CO TEACHER, lab, RT, psych nurse, social insurance administrator, storage battery inspector, teacher, fisheries technical officer, case advocate)? Give summary @ -No Was smoking cessation discussed for >3mins.? @ -No Was critical care preformed (if so, how long)? @ -No Were there social determinants of health that impacted care today? How? (Homelessness, low income, unemployed, alcoholism, drug addiction, transportation, low edu. Level, literacy, decrease access to med. care, care home, rehab)? @ -No Was there de-escalation of care discussed even if they declined (Discuss DNR or withdrawal of care, Hospice)? DNR status @ -No What co-morbidities impacted this encounter? (DM, HTN, Smoking, COPD, CAD, Cancer, CVA, ARF, Chemo, Hep., AIDS, mental health diagnosis, sleep apnea, morbid obesity)? @ -None Was patient admitted / discharged? Hospital course, mention meds given and route, prescriptions, significant lab abnormalities, going to OR and other pertinent info. @ -Discharge. 23-year-old male presented to the ER with a chief complaint of left shoulder pain after alcohol intoxication. History and physical exam completed. Vitals within normal limits. Patient in no signs of acute distress. Tenderness to left trapezius muscle. No overlying skin changes. Patient has full active range of motion. Left upper extremity neurovascular intact. No chest pain or shortness of breath. X-rays and symptomatic control in the ER, aster shearer is agreeable. X-rays obtained negative. Patient received symptomatic treatment in the ER. Patient was discharged with a Flexeril starter pack as pain believed to be musculoskeletal in nature. Advise close follow-up with orthopedics and PCP. Strict return parameters discussed. Patient discharged in stable condition with follow-up to PCP. Patient verbally expressed understanding and agreement with care plan. Case discussed with ED attending, Dr. Alfonso. Undiagnosed new problem with uncertain prognosis? @ -No Drug Therapy requiring intensive monitoring for toxicity (Heparin, Nitro, Insulin, Cardizem)? @ -No Were any procedures done? @ -No Diagnosis/symptom? @ -Shoulder pain Acute, or Chronic, or Acute on Chronic? @ -Acute Uncomplicated (without systemic symptoms) or Complicated (systemic symptoms)? @ -Uncomplicated Side effects of treatment? @ -No Exacerbation, Progression, or Severe Exacerbation? @ -No Poses a threat to life or bodily function? How? (Chest pain, [place], [place], pneumonia, PE, COPD, DKA, ARF, appy, cholecystitis, CVA, Diverticulitis, Homicidal, Suicidal, threat to staff... and all critical care pts) @ -No - Radiology Data Radiology results: report reviewed, image reviewed Disposition Clinical Impression: Shoulder pain Disposition: HOME SELF-CARE Condition: Stable Instructions (If sedation given, give patient instructions): Shoulder Pain (ED) Additional Instructions: Follow-up with PCP and/or orthopedics. Return to the ER for any new or worsening concerns. Is patient prescribed a controlled substance at d/c from ED?: No Referrals: Megan Newman DO [Primary Care Provider] - 1-2 days Lindsay Renee DO [Doctor of Osteopathic Medicine] - 1-2 days Time of Disposition: 02:19
[2024-01-07] MEDS: KETOROLAC 15 MG/ML 1 ML VIAL IM STA (01:07)
[2024-01-07] MEDS: CYCLOBENZAPRINE 10MG STARTER 3 TAB BTL PO STA (02:26)
[2024-01-07] MEDS: HYDROmorphone 0.5 MG/0.5 ML SYRINGE IM STA (02:27)
[2024-01-07 02:30] VITALS: BP 149/98; PULSE 57
--- NOTE | 2024-01-07 02:51 | XR ---
EXAM: XR Cervical Spine, 2 or 3 Views CLINICAL HISTORY: ITS.REASON XR Reason: left shoulder pain TECHNIQUE: Frontal and lateral views of the cervical spine. COMPARISON: No relevant prior studies available. FINDINGS: Vertebrae: No acute fracture. Normal sagittal alignment. Disc spaces: No significant narrowing. Soft tissues: Unremarkable. IMPRESSION: No acute osseous findings.
--- NOTE | 2024-01-07 02:51 | XR ---
EXAM: XR Left Shoulder Complete, 2 or More Views CLINICAL HISTORY: ITS.REASON XR Reason: left shoulder pain TECHNIQUE: Two or more views of the left shoulder. COMPARISON: No relevant prior studies available. FINDINGS: Bones/joints: No acute fracture. No dislocation. Soft tissues: Unremarkable. IMPRESSION: No acute osseous abnormalities.
== END 2024-01-07 02:33 | disposition home or self-care (01) ==
LOC: EC 00:45
CPT/HCPCS: 72040; 96372; 99283